=== PATIENT | male | born 1955 | race Caucasian/White ===

== ENCOUNTER 2020-10-07 15:37 | Emergency (ER) | payer MEDICARE, BC ==
[~2020-10-07] VITALS: Ht 180.3 cm; Wt 118.2 kg
[2020-10-07 15:41] VITALS: BP 164/78
== END 2020-10-07 16:15 | disposition home or self-care (01) ==
LOC: ER 15:37
DX: R05 Cough (principal); R09.81 Nasal congestion
CPT/HCPCS: 36415; 87635; 99281; 99283